=== PATIENT | male | born 1955 | race Caucasian/White ===

== ENCOUNTER 2020-07-03 13:34 | Outpatient (CLI) | payer BC ==
--- NOTE | 2020-07-03 15:29 | CT ---
CT Abdomen Pelvis W WO con: 07/03/2020 12:00 AM CLINICAL HISTORY: Hematuria. TECHNIQUE: Multiple contiguous axial images were obtained and a CT of the abdomen and pelvis without and with IV contrast. Postcontrast images were obtained in the nephrographic and excretory phases. Sagittal and coronal reformats were performed. COMPARISON: None. FINDINGS: Kidneys and Urinary Tract: Right kidney and ureter: No calculi. No hydronephrosis or hydroureter. Multiple cysts measuring up to 3.5 cm in size. No urothelial lesions: no filling defect, dilation, stricture or wall thickening. Left kidney and ureter: No calculi. No hydronephrosis or hydroureter. Multiple cysts measuring up to 6.5 cm in size. No urothelial lesions: no filling defect, dilation, stricture or wall thickening. Urinary bladder: Normal, no calculi, mass or other lesions. Remainder of Abdomen and Pelvis: Liver: Normal. Gallbladder and biliary system: Normal. No CT evident gallstones. No biliary ductal dilatation. Spleen: Absent Pancreas: Normal. Adrenal glands: Normal. GI tract: Scattered diverticula in the colon. Normal appendix and small bowel. Abdominal aorta and its major branches: Atherosclerotic calcifications No aneurysm. Peritoneum/retroperitoneum: Normal. No ascites. No adenopathy. Pelvic structures: Normal. No pelvic lymphadenopathy. Body wall and musculoskeletal: Degenerative changes in the spine. Hardware is seen in the right femur . There is a small fat-containing umbilical hernia. Visualized lower thorax: Normal. No pulmonary parenchymal mass or pleural effusion. IMPRESSION: 1. Bilateral renal cysts 2. Diverticulosis
== END 2020-07-03 13:35 | disposition home or self-care (01) ==
LOC: SCSCT 13:34
PROVIDERS: ATTEND Family Medicine
DX: R31.9 Hematuria, unspecified (principal); N28.1 Cyst of kidney, acquired; K57.30 Diverticulosis of large intestine without perforation or abscess without bleeding
CPT/HCPCS: 74178

== ENCOUNTER 2024-11-15 09:11 | Outpatient (CLI) | payer MEDICARE | END 2024-11-15 09:12 | disposition home or self-care (01) | LOC: SCSRAD 09:11 | PROVIDERS: ATTEND Family Medicine | DX: R76.12 Nonspecific reaction to cell mediated immunity measurement of gamma interferon antigen response without active tuberculosis (principal) | CPT/HCPCS: 71046 ==